=== PATIENT | female | born 1995 | race Caucasian/White ===

== ENCOUNTER 2017-11-03 20:49 | Emergency (ER) | payer OTHER ==
[~2017-11-03] VITALS: Ht 162.6 cm; Wt 90.9 kg
[2017-11-03] MEDS ORDERED: KETOROLAC TROMETHAMINE 10 MG TABLET PO ONE (22:15)
[2017-11-03 23:08] VITALS: BP 131/73
== END 2017-11-03 23:13 | disposition home or self-care (01) ==
LOC: EMS 20:53
DX: S82.832A Other fracture of upper and lower end of left fibula, initial encounter for closed fracture (principal); X50.1XXA Overexertion from prolonged static or awkward postures, initial encounter; Y93.89 Activity, other specified; Y92.89 Other specified places as the place of occurrence of the external cause; Y99.8 Other external cause status
CPT/HCPCS: 29515; 99284